=== PATIENT | female | born 1970 | race Caucasian/White ===

== ENCOUNTER 2023-02-07 16:45 | Outpatient (CLI) | payer OTHER, SELFPAY ==
--- NOTE | ~2023-02-07 | MR_ITS ---
MRI of the right elbow CLINICAL HISTORY: Pain TECHNIQUE: Proton-density and proton-density fat-sat images were acquired in the axial, coronal, and sagittal planes. FINDINGS: Ulnar collateral ligament is intact. Radial collateral ligament and the lateral ulnar colla teral ligament are intact. Common flexor and common extensor tendon origins are intact. No distinct e vidence for medial or lateral epicondylitis. Bone marrow signals are essentially unremarkable. No significant osseous or articular abnormality see n at the elbow. No high-grade chondral lesion seen. No significant elbow joint effusion. Biceps, brachialis, and triceps tendons are intact. Visualized muscle signals are unremarkable. No so ft tissue mass or fluid collection identified. Ulnar nerve is unremarkable. IMPRESSION: No significant abnormality identified. Reviewed, dictated and finalized at location .
== END 2023-02-07 16:46 | disposition home or self-care (01) ==
PROVIDERS: Visit Provider Orthopaedic Surgery
DX: M25.521 Pain in right elbow (principal)
CPT/HCPCS: 73221